=== PATIENT | female | born 1970 | race Caucasian/White ===

== ENCOUNTER 2017-05-01 07:16 | Emergency (ER) | payer BC ==
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
[2017-05-01 07:52] VITALS: BP 149/90
== END 2017-05-01 07:58 | disposition left against medical advice (07) ==
LOC: UCCORT 07:16
DX: R29.810 Facial weakness (principal); Z87.891 Personal history of nicotine dependence
CPT/HCPCS: 99212; G0463

== ENCOUNTER → 2017-05-01 08:34 | Emergency (ER) | payer BC ==
[~2017-05-01 08:34] MED LIST: Ketorolac INJ* 30 MG/ML 1 ML VIAL IV ONE; Metoclopramide IV* 5 MG/ML 2 ML VIAL IV ONE; Morphine INJ* 2 MG/ML 1 ML CARPUJECT IV ONE; Morphine INJ* 4 MG/ML 1 ML CARPUJECT ONE; NS 0.9% 1000 ML* 2,000 ML IV ONE; diPHENhydraMINE IV* 50 MG/ML 1 ml VIAL (BENADRYL) IV ONE
[2017-05-01 09:36] LABS: Hematocrit 38 % (35-47); Hemoglobin 12.8 g/dl (12.0-16.0); Mean Corpuscular HGB Conc 34 g/dl (31-36); Mean Corpuscular Hemoglobin 30 pg (27-31); Mean Corpuscular Volume 88 fL (80-97); Mean Platelet Volume 9 um3 (7.4-10.4); Red Blood Count 4.31 10^6/ul (4.0-5.4); Red Cell Distribution Width 15 % (10.5-15); White Blood Count 6.1 10^3/ul (3.5-10.8)
[2017-05-01 09:39] LABS: Urine Bilirubin Negative (Negative); Urine Glucose Negative (Negative); Urine Nitrite Negative (Negative)
[2017-05-01 10:18] LABS: Erythrocyte Sed Rate 10 mm/Hr (0-14)
[2017-05-01 10:33] VITALS: BP 126/54
[2017-05-01 10:54] LABS: Total Bilirubin 0.8 mg/dL (0.2-1.0)
[2017-05-01 11:01] LABS: Albumin 3.8 g/dL (3.2-5.2); BUN/Creatinine Ratio 16.4 (8-20); Calcium 8.7 mg/dL (8.6-10.3); EGFR African American 121.3 (>60); EGFR Non-African American 94.3 (>60); Globulin 2.5 g/dL (2-4); Potassium 3.9 mmol/L (3.5-5.0); Total Protein 6.3 g/dL (6.4-8.9)
--- NOTE | 2017-05-02 08:25 | ED ---
Ruben Hoyos Nikita, scribed for Oli Jones MD on 05/01/17 at 0919 . Headache - HPI Summary HPI Summary: This patient is a 46 year old F presenting to ED with a chief complaint of L- sided Oneil with facial tingling since yesterday morning. The CC is described as pressure and is most intense above/behind the L eye. The patient rates the pain 8/10 in severity. Symptoms aggravated by high pitch noises. Symptoms alleviated by nothing (Ibuprofen and Excedrin Migraine to no relief). Patient reports tingling from the top lip up the L cheek (like a hair is brushing on it and nausea. Patient denies blurred vision, vomiting, neck pain, weakness or numbness anywhere other than the face), sinus tenderness, ear pain, and rhinorrhea. Pt reports Hx HAs occur on the R (once every few months, sometimes they come in clusters). - History Of Current Complaint Chief Complaint: EDHeadache Stated Complaint: HEADACHE Time Seen by Provider: 05/01/17 08:47 Hx Obtained From: Patient Hx Last Menstrual Period: 04/17/17 Onset/Duration: Sudden Onset, Started days ago - yesterday morning, Still Present Initially Headache Was: Initial Pain Scale(0-10)= - 8, Moderate Currently Pain Is: Current Pain Scale(0-10)= - 8, Moderate Timing: Constant Character: Pressure Location of Headache: Other: - L-sided, above/behind the L eye Aggravating Factor: Other - high pitched noises Allevating Factors: Nothing - took Ibuprofen and Excedrin Migraine to no relief Associated Signs And Symptoms: Other (Noted In Comments) - Patient reports tingling from the top lip up the L cheek (like a hair is brushing on it and nausea. Patient denies blurred vision, vomiting, neck pain, weakness or numbness anywhere other than the face), sinus tenderness, ear pain, and rhinorrhea. - Allergies/Home Medications Allergies/Adverse Reactions: Allergies Allergy/AdvReac Type Severity Reaction Status Date / Time Latex Allergy Intermediate Rash Verified 05/01/17 08:52 Fluoxetine [From Prozac] Allergy Coughing Verified 05/01/17 08:52 Iodinated Diagnostic Agents Allergy Rash Verified 05/01/17 09:28 Tuberculin Purified Protein Allergy Hives Verified 05/01/17 09:[address] DYE Allergy Severe SWALLOW Uncoded 05/01/17 08:52 DIFFICULTY, RASH PPD Allergy Severe HIVES, Uncoded 05/01/17 08:52 RASH, TIGHT CHEST BANDAID Allergy Intermediate Rash Uncoded 05/01/17 08:52 PMH/Surg Hx/FS Hx/Imm Hx Cardiovascular History: Reports: Hx Deep Vein Thrombosis Respiratory History: Reports: Hx Asthma, Other Respiratory Problems/Disorders - Chronic cough on/off x few years Neurological History: Reports: Hx Headaches - Surgical History Surgery Procedure, Year, and Place: gb 1995 Infectious Disease History: No Infectious Disease History: Denies: Hx Tuberculosis - exposedn not active TB, Traveled Outside the [place] in Last 30 Days - Family History Known Family History: Positive: Cardiac Disease, Other - no FHx CVA or aneurysm. Family History: lung CA - Social History Alcohol Use: Occasionally Substance Use Type: Reports: None Smoking Status (MU): Former Smoker Review of Systems Negative: Blurred Vision Positive: Other - denies sinus tenderness and rhinorrhea. Negative: Ear Ache Positive: Nausea. Negative: Vomiting Positive: Other - denies neck pain Neurological: Other - denies weakness or numbness anywhere other than the face Positive: Headache - L-sided with L-sided facial tingling from top lip up the L cheek ("like a hair is brushing on it") All Other Systems Reviewed And Are Negative: Yes Physical Exam - Summary Physical Exam Summary: GENERAL: ~Patient is a well-developed and nourished FEMALE who is lying comfortable in the stretcher. ~Patient is not in any acute respiratory distress. HEAD AND FACE: No signs of trauma. ~No ecchymosis, hematomas or skull depressions. No sinus tenderness. EYES: PERRLA, EOMI x 2, No injected conjunctiva, no nystagmus. No photophobia. EARS: Hearing grossly intact. Ear canals and tympanic membranes are within normal limits. MOUTH: Oropharynx within normal limits. NECK: Supple, trachea is midline, no adenopathy, no JVD, no carotid bruit, no c- spine tenderness, neck with full ROM. No meningeal signs, no Kernig's or brudzinskis signs. CHEST: Symmetric, no tenderness at palpation LUNGS: Clear to auscultation bilaterally. No wheezing or crackles. CVS: Regular rate and rhythm, S1 and S2 present, no murmurs or gallops appreciated. ABDOMEN: Soft, non-tender. No signs of distention. No rebound no guarding, and no masses palpated. Bowel sounds are normal. EXTREMITIES: FROM in all major joints, no edema, no cyanosis or clubbing. NEURO: Alert and oriented x 3. No acute neurological deficits. Speech is normal and follows commands. SKIN: Dry and warm GCS: 15 Triage Information Reviewed: Yes Vital Signs On Initial Exam: Initial Vitals Temp Pulse Resp BP Pulse Ox 97.0 F 66 16 143/77 100 05/01/17 08:36 05/01/17 08:36 05/01/17 08:36 05/01/17 08:36 05/01/17 08:36 Vital Signs Reviewed: Yes - Monitor Coma Scale Coma Scale Total: 15 Diagnostics - Vital Signs Vital Signs Temp Pulse Resp BP Pulse Ox 05/01/17 08:49 64 19 100 05/01/17 08:48 138/73 05/01/17 08:36 97.0 F 66 16 143/77 100 - Laboratory Lab Results: Lab Results 05/01/17 05/01/17 Range/Units 09:17 09:17 WBC 6.1 (3.5-10.8) 10^3/ul RBC 4.31 (4.0-5.4) 10^6/ul Hgb 12.8 (12.0-16.0) g/dl Hct 38 (35-47) % MCV 88 (80-97) fL MCH 30 (27-31) pg MCHC 34 (31-36) g/dl RDW 15 (10.5-15) % Plt Count 180 (150-450) 10^3/ul MPV 9 (7.4-10.4) um3 Neut % (Auto) 61.1 (38-83) % Lymph % (Auto) 29.7 (25-47) % Tift % (Auto) 7.7 (1-9) % Eos % (Auto) 1.0 (0-6) % Baso % (Auto) 0.5 (0-2) % Absolute Neuts (auto) 3.7 (1.5-7.7) 10^3/ul Absolute Lymphs (auto) 1.8 (1.0-4.8) 10^3/ul Absolute Monos (auto) 0.5 (0-0.8) 10^3/ul Absolute Eos (auto) 0.1 (0-0.6) 10^3/ul Absolute Basos (auto) 0 (0-0.2) 10^3/ul Absolute Nucleated RBC 0 10^3/ul Nucleated RBC % 0 ESR Pending Urine Color Colorless Urine Appearance Clear Urine pH 7.0 (5-9) Ur Specific [place] 1.003 L (1.010-1.030) Urine Protein Negative (Negative) Urine Ketones Negative (Negative) Urine Blood Negative (Negative) Urine Nitrate Negative (Negative) Urine Bilirubin Negative (Negative) Urine Urobilinogen Negative (Negative) Ur Leukocyte Esterase Negative (Negative) Urine Glucose Negative (Negative) Result Diagrams: 05/01/17 09:17 05/01/17 09:17 Lab Statement: Any lab studies that have been ordered have been reviewed, and results considered in the medical decision making process. Re-Evaluation - Re-Evaluation First Eval Re-Evaluation Time: 10:19 Change: Improved Comment: Pt is feeling better. Discussed with pt about discharge plan. Headache Course/Dx - Course Assessment/Plan: This patient is a 46 year old F presenting to ED with a chief complaint of L-sided Oneil with facial tingling since yesterday morning. The CC is described as pressure and is most intense above/behind the L eye. The patient rates the pain 8/10 in severity. Symptoms aggravated by high pitch noises. Symptoms alleviated by nothing (Ibuprofen and Excedrin Migraine to no relief). Patient reports tingling from the top lip up the L cheek (like a hair is brushing on it and nausea. Patient denies blurred vision, vomiting, neck pain, weakness or numbness anywhere other than the face), sinus tenderness, ear pain, and rhinorrhea. Blood work is without significant abnormalities except glucose 107. In the ED course, the pt was hydrated with IV fluids, given reglan, benadry , toradol, and morphine for the pain. The pt was observed for approximately 3.5 hours in the ED. The symptoms resolved and did not return. At this point, I do not think the pt needs a head CT. The neurological exam is normal. I believe the pt had a complex migraine ONEIL. The pt is hemodynamically stable, alert and oriented x3, and without any acute focal neurological deficit. - Diagnoses Differential Diagnosis/HQI/PQRI: Migraine, Sinus Headache, Tension Headache, Other Provider Diagnoses: complex migraine headache Discharge - Discharge Plan Condition: Stable Disposition: HOME Patient Education Materials: Migraine Headache (ED) Referrals: Namrata Coelho MD [Primary Care Provider] - 3 Days The documentation as recorded by the Ruben guevara Nikita accurately reflects the service I personally performed and the decisions made by Robert torres Walter, MD.
== END | disposition home or self-care (01) ==
LOC: ED 08:34
DX: G43.809 Other migraine, not intractable, without status migrainosus (principal); Z86.718 Personal history of other venous thrombosis and embolism; J45.909 Unspecified asthma, uncomplicated; Z87.891 Personal history of nicotine dependence
CPT/HCPCS: 36415; 80053; 81003; 82375; 85025; 85652; 96360; 96374; 96375; 99282; J1200; J1885; J2270; J2765

== ENCOUNTER 2017-09-02 10:15 | Emergency (ER) | payer BC ==
[2017-09-02 10:52] VITALS: BP 141/86
[2017-09-02] MEDS ORDERED: Albuterol/Ipratropium NEB.SOL* Albuterol 2.5 MG/Ipratropium 0.5 MG 3 ML INH ONE (10:59)
--- NOTE | 2017-09-02 11:24 | RAD ---
Indication: Cough. 2 views of the chest including dual energy PA views demonstrates no mediastinal shift. Heart is of normal size and configuration. Lung lawrence appear clear. IMPRESSION: No active cardiopulmonary disease is noted.
--- NOTE | 2017-09-02 11:34 | UC ---
"Respiratory Complaint HPI - HPI Summary HPI Summary: 47 year old female with cough. states she can't breath well. was seen 2 days ago at PCP and dx with PNA. Given Zpack and prednisone. She first got sick about 4-5 weeks ago. She had a cough all along that would get worse and better. 3 days ago she got worse with progressively worse shortness of breath. Since she started the Zpck she feels like she is coughing worse and bringing up sputum. She is tearful at triage. Noticeably short of breath. Loose cough. She has pressure and tightness/heaviness over the sternum in her chest. The pressure in her chest feels better after she uses albuterol, but it only helps for about an hour. She feels the pressure in her back, but it does not radiate to her arm, neck or jaw. She does have a hx of asthma. She also has pain in her stomach that is worse when she coughs. tolerating meds at this time. she felt that last night having more congestion and blood in sputum . minimal sore throat, coughing all day and all night and can not sleep from the cough. she has no cough meds and failed OTC cough meds. [ End ] - History of Current Complaint Chief Complaint: UCRespiratory Stated Complaint: COUGH Time Seen by Provider: 09/02/17 11:00 Hx Obtained From: Patient Hx Last Menstrual Period: 04/17/17 Onset/Duration: Gradual Onset Timing: Constant Severity Initially: Moderate Severity Currently: Severe Pain Intensity: 0 Character: Cough: Productive Alleviating Factors: Bronchodilator Associated Signs And Symptoms: Positive: URI, Nasal Congestion - Risk Factors Pulmonary Embolism Risk Factors: DVT - Allergies/Home Medications Allergies/Adverse Reactions: Allergies Allergy/AdvReac Type Severity Reaction Status Date / Time fluoxetine [From Prozac] Allergy Coughing Verified 09/02/17 10:58 Iodinated Contrast- Oral and Allergy Rash And Verified 09/02/17 10:58 IV Dye Itching latex Allergy Rash Verified 09/02/17 10:58 tuberculin, purified protein Allergy Hives Verified 09/02/17 10:58 deriva bandaide Allergy Rash Uncoded 09/02/17 10:58 Home Medications: Home Medications Albuterol HFA INHALER* [Ventolin HFA Inhaler*] 2 puff INH Q4H PRN 09/02/17 [ History Confirmed 09/02/17] Azithromycin TAB* [Zithromax TAB (Z-RIKY) 250 mg #6 tabs] 250 mg PO DAILY [History Confirmed 09/02/17] predniSONE TAB* [Deltasone TAB*] 20 mg PO DAILY 09/02/17 [History Confirmed ] PMH/Surg Hx/FS Hx/Imm Hx Previously Healthy: Yes Psychological History: Anxiety, Depression - Surgical History Surgical History: Yes Surgery Procedure, Year, and Place: 1995 - Family History Known Family History: Positive: Cardiac Disease, Other - no FHx CVA or aneurysm. 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[employer] Lives: With Family Alcohol Use: Occasionally Substance Use Type: None Smoking Status (MU): Former Smoker Review of Systems Constitutional: Chills, Fatigue ENT: Sore Throat, Ear Ache, Nasal Discharge, Sinus Congestion, Sinus Pain/ Tenderness Respiratory: Shortness Of Breath, Cough Musculoskeletal: Arthralgia Neurological: Headache Is Patient Immunocompromised?: No All Other Systems Reviewed And Are Negative: Yes Physical Exam Triage Information Reviewed: Yes Appearance: Well-Appearing, Well-Nourished Vital Signs: Initial Vital Signs Temp 99.3 F 09/02/17 10:46 Pulse 94 09/02/17 10:46 Resp 22 09/02/17 10:46 BP 141/86 09/02/17 10:46 Pulse Ox 100 09/02/17 10:46 Vital Signs Reviewed: Yes Eye Exam: Normal ENT Exam: Normal Dental Exam: Normal Neck exam: Normal Neck: Positive: 1 Respiratory Exam: Normal Cardiovascular Exam: Normal Musculoskeletal Exam: Normal Neurological Exam: Normal Psychological Exam: Normal Skin Exam: Normal UC Diagnostic Evaluation - Laboratory O2 Sat by Pulse Oximetry: 100 Respiratory Course/Dx - Course Course Of Treatment: [place] | Reference #: [id number]. xray neg. likely viral but advised to finish meds. RTO if any concerns - Differential Dx/Diagnosis Differential Diagnosis/HQI/PQRI: Asthma, Bronchitis, Exacerbation Of COPD, Influenza, Laryngitis, Lower Resp Infection, Pulmonary Embolism, Sinusitis Provider Diagnoses: asthma exacerbation Discharge - Discharge Plan Condition: Good Disposition: HOME Prescriptions: Codeine Phosphate/Guaifenesin [Cheratussin AC Syrup] 5 ml PO Q6H PRN #120 ml MDD 20 PRN Reason: Cough Patient Education Materials: Asthma (ED), Upper Respiratory Infection (ED) Forms: *Work Release Referrals: Namrata Coelho MD [Primary Care Provider] - 4 Days Additional Instructions: Xray was negative for acute concerns. Finish your medication give our previously by your PCP"
== END 2017-09-02 12:07 | disposition home or self-care (01) ==
LOC: UCCORT 10:15
DX: J45.901 Unspecified asthma with (acute) exacerbation (principal); Z87.891 Personal history of nicotine dependence
CPT/HCPCS: 71046; 99212; A9270-GY; G0463

== ENCOUNTER 2019-08-24 07:17 | Emergency (ER) | payer BC ==
--- OUTSIDE RECORDS SUMMARY | 2019-08-24 07:23 | XMS REPORT | Continuity of Care Document ---
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 Problems Active Problems Provider Date Allergic rhinitis MAINE Hdez Onset: 08/01/2019 Allergic rhinitis due to pollen Irais Johnson NP Onset: 12/09/2017 Uncomplicated moderate persistent Jacob Belle MD Onset: 11/23/2017 asthma Social History Type Date Description Comments Sex Unknown Tobacco Use Start: Unknown End: Patient is a former smoker Quit 10+ years ago Unknown Smoking Status Reviewed: 08/01/19 Patient is a former smoker Quit 10+ years ago Allergies, Adverse Reactions, Alerts Active Allergies Reaction Severity Comments Date Prozac 11/23/2017 PPD 11/23/2017 Latex 11/23/2017 Adhesives 11/23/2017 Contrast Dye 11/23/2017 Medications Active Medications SIG Qnty Indications Ordering Provider Date Levocetirizine take one 30tabs J30.1 Christophbrandon AChaparrita 08/01/2019 Dihydrochloride tablet by MD Yoshi 5mg mouth daily at Tablets bedtime Breo Ellipta inhale one 28units J45.40 Jacob Guzman 11/23/2017 puff once a MD Yoshi 200-25mcg/Inh Aerosol day. rinse mouth after use. Proair HFA 2 puffs every 8.500gm J45.40 Robertopher AChaparrita 11/23/2017 108(90Base) 4 as needed MD Yoshi mcg/Act Aerosol Vitamin C Unknown 500mg Tablets Magnesium 2 tablets Unknown 500mg Tablets twice a day Pepcid 1 tab by mouth Unknown 20mg Tablets twice a day Immunizations Description No Information Available Vital Signs Date Vital Result Comment 08/01/2019 1:12pm BP Systolic 110 mmHg BP Diastolic 80 mmHg Height 64 inches 5'4" Weight 210.00 lb BMI (Body Mass Index) 36.0 kg/m2 Heart Rate 71 /min Respiratory Rate 16 /min Body Temperature 99.1 F O2 % BldC Oximetry 98 % 12/09/2017 8:28am BP Systolic 126 mmHg BP Diastolic 88 mmHg Height 64 inches 5'4" Weight 210.00 lb BMI (Body Mass Index) 36.0 kg/m2 Heart Rate 68 /min Respiratory Rate 18 /min Body Temperature 99.5 F O2 % BldC Oximetry 97 % Results Description No Information Available Procedures Date Code Description Status 08/01/2019 54845 Nitric Oxide Gas Determination Completed 08/01/2019 83398 Bronchodilation Responsiveness Spirometry Pre/Post Completed Bronchodil Adm Medical Devices Description No Information Available Encounters Type Date Location Provider Dx Diagnosis Office Visit 08/01/2019 [place] Sonia Verdugo J45.40 Moderate persistent 1:00p [place], asthma, uncomplicated RPA-[facility] J30.1 Allergic rhinitis due to pollen J30.89 Other allergic rhinitis Assessments Date Code Description Provider 08/01/2019 J45.40 Moderate persistent asthma, MAINE Hdez uncomplicated 08/01/2019 J30.1 Allergic rhinitis due to pollen VERO Hdez 08/01/2019 J30.89 Other allergic rhinitis MAINE Hdez Plan of Treatment Future Appointment(s):08/01/2020 1:00 pm - MAINE Hdez at [facility]/21/2020 - SADA HdezCJ45.40 Moderate persistent asthma, uncomplicatedComments:Patient with stable asthma. Today's PFT is within normal limits. NIOX is also normal at 7ppb. Continue Breo as prescribed. I have discussed the importance of using Breo daily. Continue ProAir as neededfor breakthrough asthma symptoms.Follow up:1 year - w/PFT and NIOX (patient prefers to follow-up annually, but will contact the office if earlier appointment is needed)J30.1 Allergic rhinitis due to pollenNew Medication:Levocetirizine Dihydrochloride 5 mg - take one tablet by mouth daily at bedtimeComments:I have reviewed environmental controls for dust, dust mites, mold spores and pets. I will give Levocetirizine for breakthrough nasal allergy symptoms. Patient is not interested in immunotherapy.Follow up:1 year.J30.89 Other allergic rhinitis Functional Status Description No Information Available Mental Status Description No Information Available Referrals Description No Information Available
--- OUTSIDE RECORDS SUMMARY | 2019-08-24 07:23 | XMS REPORT | Continuity of Care Document ---
:1970 External Reference #:[id number] Author Name Verna Burgos O.D. Address [address] [place] [address] Problems Active Problems Provider Date Regular astigmatism Verna Burgos O.D. Onset: 12/14/2016 Headache Verna Burgos O.D. Onset: 08/09/2019 Nuclear senile cataract Verna Burgos O.D. Onset: 08/09/2019 Presbyopia Verna Burgos O.D. Onset: 12/14/2016 Social History Type Date Description Comments Sex Unknown ETOH Use Occasionally consumes alcohol Recreational Drug Use Denies Drug Use Tobacco Use Start: Unknown End: Patient is a former smoker Unknown Smoking Status Reviewed: 08/09/19 Patient is a former smoker Allergies, Adverse Reactions, Alerts Active Allergies Reaction Severity Comments Date Iodinated Diagnostic 12/14/2016 Agents Prozac cough 12/14/2016 Latex Contact dermatitis mild, with excessive 12/14/2016 exposure Medications Active Medications SIG Qnty Indications Ordering Provider Date Breo Ellipta Unknown 200-25mcg/Inh Aerosol Immunizations Description No Information Available Vital Signs Description No Information Available Results Description No Information Available Procedures Description No Information Available Medical Devices Description No Information Available Encounters Description No Information Available Assessments Date Code Description Provider 08/09/2019 H25.13 Age-related nuclear cataract, bilateral Verna Burgos O.D. 08/09/2019 R51 Headache Verna Burgos O.D. 08/09/2019 H52.223 Regular astigmatism, bilateral Verna Burgos O.D. 08/09/2019 H52.4 Presbyopia Verna Burgos O.D. Plan of Treatment 08/09/2019 - Verna Burgos O.D.H25.13 Age-related nuclear cataract, bilateralComments:You have been diagnosed with cataracts. If you are happy with your vision as it is now, then we willsee you at your next scheduled appointment. If you feel like your vision is getting worse before your scheduled appointment, please call [facility] at [phone].Follow up:1 Year Follow Up You can expect to have your eyes dilated at your next visit. If Dr. Burgos orders any additional testing, it may require extra time. We recommend that you bring sunglasses, as dilation drops often make you light sensitive until they wear off. We always recommend you bring someone to drive you home if you are uncomfortable driving with your eyes dilated. If you have any questions before your next visit, feel free to call our office at .R51 [id number] Regular astigmatism, bilateralComments:You have an astigmatism. Astigmatism is a common vision condition that happens when a person's cornea is not symmetrical. Dr. Burgos has given you a prescription to correct for this.H52.4 PresbyopiaComments:Smoking can increase the risk of developing or worsening any eye related disease, as well as affect your overall health. If you are a smoker, we strongly recommend that you quit.If you are not a smoker, we strongly recommend that you do not start. You have presbyopia. This is when the lens in your eye loses the ability to change focus, and happens as we age. A pair of reading glasses will help you see up close. Functional Status Description No Information Available Mental Status Description No Information Available Referrals Description No Information Available
[2019-08-24 07:49] VITALS: BP 139/85
--- NOTE | 2019-08-24 08:11 | UC ---
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 Patient has a history of asthma. She comes to the urgent care center with complaints of congestion and runny nose cough and sore throat for a week. Description of Pain: No chest pain; no significant shortness of breath or wheezing VITAL SIGNS REVIEWED. Within normal limits unless noted here. NURSES NOTE REVIEWED. " Patient reports chest congestion, runny nose, cough, sore throat x 1 week. Daughter tested positive for flu B and patient was treated with Tamiflu. Course of treatment complete. Patient reports she is feel worse. Hx of Asthma " - History of Current Complaint Chief Complaint: UCGeneralIllness Stated Complaint: COUGH AND HEADACHE Time Seen by Provider: 08/24/19 08:06 Hx Obtained From: Patient Hx Last Menstrual Period: 04/17/17 Pain Intensity: 0 - Allergies/Home Medications Allergies/Adverse Reactions: Allergies Allergy/AdvReac Type Severity Reaction Status Date / Time fluoxetine [From Prozac] Allergy Coughing Verified 08/24/19 07:44 Iodinated Contrast Media Allergy Rash And Verified 08/24/19 07:44 [Iodinated Contrast- Oral Itching and IV Dye] latex Allergy Rash Verified 08/24/19 07:44 tuberculin, purified protein Allergy Hives Verified 08/24/19 07:44 deriva bandaide Allergy Rash Uncoded 08/24/19 07:44 Home Medications: Home Medications Fluticasone/Vilanterol [Breo Ellipta 200-25 Mcg INH] 1 puff INH DAILY 08/24/19 [ History Confirmed 08/24/19] PMH/Surg Hx/FS Hx/Imm Hx Previously Healthy: Yes Respiratory History: Asthma - Surgical History Surgical History: Yes Surgery Procedure, Year, and Place: gb 1995. ORIF LEFT ANKLE 1978 - Family History Known Family History: Positive: Cardiac Disease, Other - no FHx CVA or aneurysm. 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 Eyes: Conjunctiva are clear. Pupils are equal and reactive to light and accommodation. Extra ocular muscle movement is intact. ENT: The hearing is grossly normal, the pharynx is normal, and the TMs are normal. There is no muffled or hoarse voice. No stridor. Neck: The neck is supple and there is no lymphadenopathy. Respiratory: The chest is non-tender to palpation and without crepitus. The lungs are clear, there is an extended expiratory phase bilaterally, and there is no respiratory distress. No wheezes, rales or rhonchi. Cardiovascular: Heart sounds reveal a regular rate and rhythm. There are no clicks, rubs or murmurs. There are no carotid bruits or thrills. Circulation is grossly intact. Abdomen: The abdomen is soft and nontender. There is no organomegaly. Bowel sounds are present and within normal limits. No point tenderness at McBurneys point. No CVA tenderness. Musculoskeletal: Strength is intact. The patient moves all extremities. Neurological: The patient is alert. Motor and sensory are examination grossly intact. Speech is normal. Psychological: The patient displays age appropriate behavior, and is conversant. GCS=15. Skin: Negative for rashes. Triage Information Reviewed: Yes Vital Signs: Initial Vital Signs Temp 99.2 F 08/24/19 07:45 Pulse 72 08/24/19 07:45 Resp 16 08/24/19 07:45 BP 139/85 08/24/19 07:45 Pulse Ox 96 08/24/19 07:45 Vital Signs Reviewed: Yes Respiratory Course/Dx - Differential Dx/Diagnosis Differential Diagnosis/HQI/PQRI: Bronchitis, Influenza, Lower Resp Infection Provider Diagnosis: Bronchospasm with bronchitis, acute Discharge ED - Sign-Out/Discharge Documenting (check all that apply): Patient Departure All imaging exams completed and their final reports reviewed: No Studies - Discharge Plan Condition: Stable Disposition: HOME Prescriptions: Albuterol HFA INHALER* [Ventolin HFA Inhaler*] 1 - 2 puff INH Q4H #1 mdi MDD 8 predniSONE 20 mg TAB [Deltasone 20 MG TAB*] 20 mg PO DAILY #15 tab MDD 3 Patient Education Materials: Asthma (DC) Referrals: Namrata Coelho MD [Primary Care Provider] - Additional Instructions: WE DISCUSSED: PLEASE SEEK CARE AT THE EMERGENCY DEPARTMENT IF SYMPTOMS WORSEN OR IF NEW SYMPTOMS DEVELOP. FOLLOW UP WITH YOUR PRIMARY CARE PHYSICIAN IF CONDITION CONTINUES BEYOND 3 DAYS WITHOUT IMPROVEMENT. YOUR DIAGNOSIS IS: Bronchitis with bronchospasm YOUR PRESCRIPTION RECOMMENDATION IS: Prednisone, one pill 3 times a day for 5 days. Use this in conjunction with your albuterol and spacer: 2 puffs 3-4 times a day. OTHER INSTRUCTIONS: Lots of warm hot fluids including tea and honey. 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 Use a vaporizer. Steam may help. Your cough is related to bronchospasm. If you develop any chest pain, increased fever or increasing shortness of breath, need to be reevaluated. I have given you some prednisone for 5 days to calm her lungs down. FOR PAIN AND/OR SLEEP: For pain: Ibuprofen (Motrin and other brand names) 400-600mg PLUS acetaminophen (Tylenol and other brand names) 500mg - 1000mg every 8 hours. Other information: The most important goal is to liquefy all the phlegm and mucus, and get it out of your head and chest. For sore throat, it is important to keep throat moist and protected. Any illness causing cough, congestion, sore throat or sinus discomfort can be helped by doing the following: To clear you head, sinuses and chest of congestion: stand under a warm shower stream to loosen secretions. Use a vaporizor. Stay away from smoke or irritants. Use saline nasal spray or Neti Pot to keep the flow of mucus from your nostrils and sinuses. For sore throat: drink lots of warm fluids. Tea and honey is particularly useful because the honey can coat protect your throat. Gargle with warm water with 1/2 teaspoon of salt per 8 ounces of water. Gargle for a few seconds and spit out. Repeat every three hours. Keep your throat protected with lozenges. Don't let your throat dry out. Use a vaporizor at night. Make sure to check with your pharmacist if you are taking other prescription medication prior to taking any over the counter medications listed here. DECONGESTANTS: helps relieve stuffiness and clears sinuses. Pseudoephedrine ( Sudafed or generic) is effective but you need to ask the pharmacist for it because it may be kept behind the counter. ANTIHISTAMINES: are not helpful in many colds and flus because they can worsen sore throat, dry eyes and mouth and cause drowsiness. Examples are diphenhydramine, doxylamine and chlorpheniramine. They can help dry you out if you are having profuse, clear drainage from the nose or post-nasal drip. EXPECTORANTS: helps thin mucous in the nose and chest, making it easier to clear the fluid out. Expectorants are in most combination cough/cold remedies and should be taken with plenty of water. Guaifenesin is the most common expectorant and it comes in pill or liquid form. Mucinex is an extended release form of guaifenesin. COUGH SUPPRESSANT: reduces the body's cough reflex. Dextromethorphan is in over the counter products, but sometimes narcotics such as codeine or hydrocodone are used to suppress cough. SPECIFIC MEDICATIONS: The following medicines may help: To help with cough: DEXTROMETHORPHAN (Vicks, Robitussin, Nyquil and other brands) To help break up phlegm: GUAIFENESIN (Mucinex, Robitussin, other brands) To help clear congestion in the nose and sinuses: PSEUDOEPHEDRINE (Sudafed, Dimetapp, other brands) To help clear nasal congestion: AFRIN NASAL SPRAY: 2-3 SPRAYS PER NOSTRIL, TWICE A DAY FOR TWO DAYS ONLY. FLONASE: (or other steroid nasal sprays) can help if your running nose is caused by an allergy. It can help relieve congestion. It is used once a day in each nostril. Check the dose with your pharmacist. FOLLOW-UP: re-check in 10 days if you are not improving. Return here or see your caregiver. RE-CHECK SOONER if you have increased pain, temperature, cough, sinus symptoms, or difficulty breathing or swallowing. Go directly to Emergency Department if symptoms are severe. - Billing Disposition and Condition Condition: STABLE Disposition: Home
== END 2019-08-24 08:32 | disposition home or self-care (01) ==
LOC: UCEAST 07:17
DX: J20.9 Acute bronchitis, unspecified (principal); J45.909 Unspecified asthma, uncomplicated; J02.9 Acute pharyngitis, unspecified; Z91.040 Latex allergy status; Z91.041 Radiographic dye allergy status; Z88.8 Allergy status to other drugs, medicaments and biological substances; Z79.51 Long term (current) use of inhaled steroids; Z87.891 Personal history of nicotine dependence
CPT/HCPCS: 99212; G0463